=== PATIENT | male | born 1990 | race Caucasian/White ===

== ENCOUNTER 2018-10-24 23:00 | Emergency (ER) | payer OTHER ==
[~2018-10-24] VITALS: Ht 180.3 cm; Wt 61.2 kg
[2018-10-24 23:11] VITALS: BP 116/78
[2018-10-24] MEDS ORDERED: HYDROCODONE/APAP 5/325MG 1 EACH TABLET ONE (23:36)
[2018-10-24] MEDS ORDERED: CYCLOBENZAPRINE 10 MG TABLET ONE (23:36)
[2018-10-25] MEDS ORDERED: CYCLOBENZAPRINE 10 MG TABLET PO ONE
[2018-10-25] MEDS ORDERED: HYDROCODONE/APAP 5/325MG 1 EACH TABLET PO ONE
== END 2018-10-24 23:46 | disposition home or self-care (01) ==
LOC: ER 23:06
DX: S13.4XXA Sprain of ligaments of cervical spine, initial encounter (principal); Z98.890 Other specified postprocedural states; V47.5XXA Car driver injured in collision with fixed or stationary object in traffic accident, initial encounter; Y93.89 Activity, other specified; Y92.413 State road as the place of occurrence of the external cause; Y99.8 Other external cause status
CPT/HCPCS: 99283; A4606; Z7610